=== PATIENT | male | born 1965 | race Two or more races ===

== ENCOUNTER 2020-03-21 10:41 | Inpatient (IN) | payer BC, OTHER ==
[~2020-03-21] VITALS: Ht 165.1 cm; Wt 101.0 kg
[2020-03-21] MEDS ORDERED: AZITHROMYCIN 500MG/ 250ML 250 ML IV ONE (12:00)
[2020-03-21] MEDS ORDERED: DexAMETHasone SOD PHOS 10MG/1ML VIAL INJ IV ONE (12:00)
[2020-03-21 12:09] LABS: Basophils # (auto) 0 10 ^3/uL (0-0.2); Basophils % (auto) 0.1 % (0.0-2.0); Eosinophils # (auto) 0 10 ^3/uL (0-0.8); Hematocrit 41.8 % (41.0-53.0); Hemoglobin 14.5 g/dL (13.5-17.5); Lymphocytes # (auto) 0.4 10 ^3/uL (0.4-5.4); Lymphocytes % (auto) 6.7 % (10.0-50.0); Mean Corpuscular Hemoglobin 31.2 pg (28.0-32.0); Mean Corpuscular Hgb Conc. 34.8 g/dL (32.0-36.0); Mean Corpuscular Volume 89.8 fL (80.0-100.0); Monocytes # (auto) 0.4 10 ^3/uL (0-1.3); Monocytes % (auto) 5.7 % (0.0-12.0); Neutrophils # (auto) 5.5 10 ^3/uL (1.6-8.6); Neutrophils % (auto) 87.5 % (37.0-80.0); Nucleated Red Blood Cells % 0.2 %; Platelet Count (auto) 174 10^3/uL (140-450); Red Blood Cells 4.66 10^6/uL (4.5-5.90); Red Cell Distribution Width 13.3 % (11.8-14.3); White Blood Cell 6.3 10^3/uL (4.4-10.8)
[2020-03-21 12:38] LABS: Albumin 2.8 g/dL (3.4-5.0); Anion Gap 9 (5-15); Blood Urea Nitrogen 11 mg/dL (7-18); Calcium 8.4 mg/dL (8.5-10.1); Carbon Dioxide 26 mmol/L (21-32); Chloride 102 mmol/L (98-107); Glucose 150 mg/dL (74-106); Sodium 137 mmol/L (136-145)
[2020-03-21 12:43] LABS: Alanine Aminotransferase 39 U/L (16-61); Alkaline Phosphatase 96 U/L (45-117); Aspartate Aminotransferase 40 U/L (15-37); BUN/Creatinine Ratio 9.3; Bilirubin, Total 0.5 mg/dL (0.2-1.0); GFR African American 83 mL/min; GFR Non-African American 69 mL/min; Total Protein 7.4 g/dL (6.4-8.2)
[2020-03-21 14:58] LABS: Partial Thromboplastin Time 34.7 sec (23.0-31.2)
[2020-03-21] MEDS ORDERED: MORPHINE SULF INJ 2 MG/ML SYRINGE 1ML IV PRN ×2 (15:30→18:45)
[2020-03-21] MEDS ORDERED: NITROGLYCERIN 0.4 MG SL TAB SL PRN (15:30)
[2020-03-21] MEDS ORDERED: LORazepam 0.5 MG TAB PO ONE (16:00)
[2020-03-21] MEDS ORDERED: traMADol HCL 50 MG TAB PO PRN (18:45)
[2020-03-21] MEDS ORDERED: TEMAZEPAM 15 MG CAP PO PRN (18:45)
[2020-03-21] MEDS ORDERED: diphenhdrAMINE HCL 50 MG/1 ML VL IV PRN (18:45)
[2020-03-21] MEDS ORDERED: DEXTROSE (50%) 50ML SYRG IV PRN (18:45)
[2020-03-21] MEDS ORDERED: ACETAMINOPHEN 500 MG TAB PO PRN (18:45)
[2020-03-21] MEDS ORDERED: chlordiazePOXIDE HCL 25 MG CAP PO PRN (18:45)
[2020-03-21] MEDS ORDERED: PROMETHAZINE HCL 25 MG/ML 1ML IV PRN (18:45)
[2020-03-21] MEDS ORDERED: REMDESIVIR PER PHARMACY 0 ML IV SCH (18:45)
[2020-03-21] MEDS ORDERED: THIAMINE 100mg/ml INJ (200mg/2ml VIAL) IV ONE (18:45)
[2020-03-21] MEDS ORDERED: LORazepam 0.5 MG TAB PO PRN (18:45)
[2020-03-21] MEDS: SODIUM CHLORIDE 0.9% 1,000 ML IV SCH (21:05)
[2020-03-21] MEDS: ENOXAPARIN SOD 40 MG/0.4 ML SYRINGE SC SCH (22:00)
[2020-03-21] MEDS: FAMOTIDINE (10MG/ML) 2ML VL IV SCH (22:00)
[2020-03-21] MEDS: ACCU-CHEK COMFORT CURVE STRIP VI SCH (22:00)
[2020-03-21] MEDS: FAMOTIDINE 20 MG TAB PO SCH (22:00)
[2020-03-21] MEDS: BUDESONIDE (INHALATION) 180 MCG IH IN SCH (22:00)
[2020-03-22] MEDS: chlordiazePOXIDE HCL 5 MG CAP PO SCH ×5 (06:00→23:35)
[2020-03-22] MEDS: ACCU-CHEK COMFORT CURVE STRIP VI SCH (07:00)
[2020-03-22 09:34] LABS: Basophils # (auto) 0 10 ^3/uL (0-0.2); Basophils % (auto) 0.1 % (0.0-2.0); Eosinophils # (auto) 0 10 ^3/uL (0-0.8); Hematocrit 40.9 % (41.0-53.0); Hemoglobin 14.2 g/dL (13.5-17.5); Lymphocytes # (auto) 0.9 10 ^3/uL (0.4-5.4); Lymphocytes % (auto) 12.7 % (10.0-50.0); Mean Corpuscular Hemoglobin 31.3 pg (28.0-32.0); Mean Corpuscular Hgb Conc. 34.8 g/dL (32.0-36.0); Mean Corpuscular Volume 89.9 fL (80.0-100.0); Monocytes # (auto) 0.6 10 ^3/uL (0-1.3); Monocytes % (auto) 8.2 % (0.0-12.0); Neutrophils # (auto) 5.6 10 ^3/uL (1.6-8.6); Nucleated Red Blood Cells % 0.1 %; Platelet Count (auto) 246 10^3/uL (140-450); Red Blood Cells 4.55 10^6/uL (4.5-5.90); Red Cell Distribution Width 13.1 % (11.8-14.3); White Blood Cell 7.1 10^3/uL (4.4-10.8)
[2020-03-22] MEDS: BUDESONIDE (INHALATION) 180 MCG IH IN SCH ×2 (09:39→21:41)
[2020-03-22 09:50] LABS: Albumin 2.8 g/dL (3.4-5.0); Anion Gap 6 (5-15); Blood Urea Nitrogen 18 mg/dL (7-18); Calcium 8.7 mg/dL (8.5-10.1); Carbon Dioxide 27 mmol/L (21-32); Chloride 104 mmol/L (98-107); Glucose 114 mg/dL (74-106); Potassium 4.6 mmol/L (3.5-5.1); Sodium 137 mmol/L (136-145)
[2020-03-22 09:52] LABS: Alanine Aminotransferase 39 U/L (16-61); Aspartate Aminotransferase 37 U/L (15-37); BUN/Creatinine Ratio 15.4; GFR African American 84 mL/min; GFR Non-African American 70 mL/min
[2020-03-22 09:54] LABS: Alkaline Phosphatase 94 U/L (45-117); Bilirubin, Total 0.5 mg/dL (0.2-1.0); Total Protein 7.8 g/dL (6.4-8.2)
[2020-03-22] MEDS: FAMOTIDINE (10MG/ML) 2ML VL IV SCH ×2 (10:41→22:00)
[2020-03-22] MEDS: FAMOTIDINE 20 MG TAB PO SCH ×2 (10:41→22:46)
[2020-03-22] MEDS: ZINC SULFATE 220mg CAP or TAB PO SCH (10:41)
[2020-03-22] MEDS: THIAMINE 100mg/ml INJ (200mg/2ml VIAL) IV SCH (10:42)
[2020-03-22] MEDS: CHOLECALCIFEROL (VITD3) 2,000 UNIT CAP PO SCH (10:42)
[2020-03-22] MEDS: ASCORBIC ACID 1,000 MG TAB PO SCH (10:42)
[2020-03-22] MEDS: SODIUM CHLORIDE 0.9% 1,000 ML IV SCH (10:42)
[2020-03-22] MEDS: levoFLOXacin 500MG 100 ML IV SCH (10:42)
[2020-03-22] MEDS: ENOXAPARIN SOD 40 MG/0.4 ML SYRINGE SC SCH ×2 (10:42→22:45)
[2020-03-22] MEDS: DexAMETHasone SOD PHOS 10MG/1ML VIAL INJ IV SCH (10:47)
[2020-03-22] MEDS ORDERED: REMDESIVIR 200 MG in NS 210ml LOADING DOSE ADULT IV ONE (15:00)
[2020-03-22 23:39] VITALS: BP 132/77
[2020-03-23] VITALS: BP 132/77
[2020-03-23] MEDS ORDERED: LOSA-39 PO (01:04)
[2020-03-23] MEDS ORDERED: ATOR20TA50 PO (01:04)
[2020-03-23] MEDS ORDERED: ASPI-543 PO (01:04)
[2020-03-23] MEDS ORDERED: AMLO5TAB15 PO (01:04)
[2020-03-23] MEDS: chlordiazePOXIDE HCL 5 MG CAP PO SCH ×3 (06:22→18:00)
[2020-03-23] MEDS: BUDESONIDE (INHALATION) 180 MCG IH IN SCH ×2 (06:34→18:36)
[2020-03-23 07:51] LABS: Chloride 106 mmol/L (98-107); Potassium 4.5 mmol/L (3.5-5.1); Sodium 137 mmol/L (136-145)
[2020-03-23 08:00] VITALS: BP 165/88
[2020-03-23 08:39] LABS: Alanine Aminotransferase 36 U/L (16-61); Albumin 2.5 g/dL (3.4-5.0); Alkaline Phosphatase 85 U/L (45-117); Anion Gap 8 (5-15); Aspartate Aminotransferase 37 U/L (15-37); Bilirubin, Total 0.4 mg/dL (0.2-1.0); Blood Urea Nitrogen 21 mg/dL (7-18); Carbon Dioxide 23 mmol/L (21-32); GFR African American 101 mL/min; GFR Non-African American 83 mL/min; Glucose 114 mg/dL (74-106); Total Protein 6.9 g/dL (6.4-8.2)
[2020-03-23] MEDS: CHOLECALCIFEROL (VITD3) 2,000 UNIT CAP PO SCH (10:00)
[2020-03-23] MEDS: FAMOTIDINE 20 MG TAB PO SCH ×2 (10:00→22:53)
[2020-03-23] MEDS: FAMOTIDINE (10MG/ML) 2ML VL IV SCH ×2 (10:05→22:00)
[2020-03-23] MEDS: DexAMETHasone SOD PHOS 10MG/1ML VIAL INJ IV SCH (10:06)
[2020-03-23] MEDS: ZINC SULFATE 220mg CAP or TAB PO SCH (10:06)
[2020-03-23] MEDS: ASCORBIC ACID 1,000 MG TAB PO SCH (10:06)
[2020-03-23] MEDS: levoFLOXacin 500MG 100 ML IV SCH (10:06)
[2020-03-23] MEDS: SODIUM CHLORIDE 0.9% 1,000 ML IV SCH ×2 (10:45)
[2020-03-23] MEDS ORDERED: FUROSEMIDE 20 MG/2 ML VIAL IV ONE (12:30)
[2020-03-23] MEDS: THIAMINE 100mg/ml INJ (200mg/2ml VIAL) IV SCH (13:00)
[2020-03-23] MEDS ORDERED: PROMETHAZINE W/CODEINE 5 ML ORAL SYRUP PO PRN (14:00)
[2020-03-23] MEDS: REMDESIVIR 100 MG in SODIUM CHL 0.9% 250 ML IV SCH ×2 (15:00→17:00)
[2020-03-23 16:00] VITALS: BP 161/93
[2020-03-23 16:26] VITALS: BP 175/95
[2020-03-23] MEDS ORDERED: ACETAMINOPHEN 650 mg PER 20.3 mL UD PO ONE (20:00)
[2020-03-23] MEDS ORDERED: methylPREDNISolone SOD SUCC 40 MG/ML VL IV ONE (20:00)
[2020-03-23] MEDS ORDERED: diphenhdrAMINE HCL 50 MG/1 ML VL IV ONE (20:00)
[2020-03-23] MEDS: ALBUTEROL SULF HFA 90MCG INH 200DOSE IN PRN (20:13)
[2020-03-23] MEDS ORDERED: TOCILIZUMAB 400 MG in SODIUM CHL 0.9% 80 ML IV ONE (20:30)
[2020-03-23] MEDS: ENOXAPARIN SOD 80 MG/0.8ML SYRINGE SC SCH (22:53)
[2020-03-24] VITALS: BP 158/89
[2020-03-24] MEDS: cloNIDine HCL 0.1 MG TAB PO PRN (00:01)
[2020-03-24] MEDS: chlordiazePOXIDE HCL 5 MG CAP PO SCH ×4 (05:43→20:05)
[2020-03-24] MEDS: BUDESONIDE (INHALATION) 180 MCG IH IN SCH ×2 (06:18→19:37)
[2020-03-24 07:59] LABS: Albumin 2.3 g/dL (3.4-5.0); Calcium 8.7 mg/dL (8.5-10.1); Potassium 4.1 mmol/L (3.5-5.1)
[2020-03-24 08:00] VITALS: BP 154/87
[2020-03-24 08:02] LABS: BUN/Creatinine Ratio 23.3; Bilirubin, Total 0.4 mg/dL (0.2-1.0); Total Protein 6.6 g/dL (6.4-8.2)
[2020-03-24] MEDS ORDERED: methylPREDNISolone SOD SUCC 40 MG/ML VL IV ONE (09:30)
[2020-03-24] MEDS ORDERED: diphenhdrAMINE HCL 50 MG/1 ML VL IV ONE (09:30)
[2020-03-24] MEDS ORDERED: ACETAMINOPHEN 650 mg PER 20.3 mL UD PO ONE (09:30)
[2020-03-24] MEDS: THIAMINE 100mg/ml INJ (200mg/2ml VIAL) IV SCH (09:51)
[2020-03-24] MEDS: levoFLOXacin 500MG 100 ML IV SCH (09:52)
[2020-03-24] MEDS: FUROSEMIDE 20 MG/2 ML VIAL IV SCH (09:53)
[2020-03-24] MEDS: FAMOTIDINE (10MG/ML) 2ML VL IV SCH ×2 (09:53→21:18)
[2020-03-24] MEDS: ZINC SULFATE 220mg CAP or TAB PO SCH (09:53)
[2020-03-24] MEDS: FAMOTIDINE 20 MG TAB PO SCH ×2 (09:53→10:00)
[2020-03-24] MEDS: CHOLECALCIFEROL (VITD3) 2,000 UNIT CAP PO SCH (09:54)
[2020-03-24] MEDS: ASCORBIC ACID 1,000 MG TAB PO SCH (09:54)
[2020-03-24] MEDS: ENOXAPARIN SOD 80 MG/0.8ML SYRINGE SC SCH ×2 (09:54→21:18)
[2020-03-24] MEDS ORDERED: TOCILIZUMAB 400 MG in SODIUM CHL 0.9% 80 ML IV ONE (10:00)
[2020-03-24] MEDS ORDERED: amLODIPine BESYLATE 5 MG TAB PO SCH (10:00)
[2020-03-24] MEDS: DexAMETHasone SOD PHOS 10MG/1ML VIAL INJ IV SCH (11:30)
[2020-03-24] MEDS: Ensure HIGH Protein Chocolate 8oz Bottle PO SCH ×2 (12:00→18:00)
[2020-03-24] MEDS: REMDESIVIR 100 MG in SODIUM CHL 0.9% 250 ML IV SCH (15:06)
[2020-03-24 16:00] VITALS: BP 137/67
[2020-03-24] MEDS: ALBUTEROL SULF HFA 90MCG INH 200DOSE IN PRN (19:37)
[2020-03-25] VITALS: BP 158/82
[2020-03-25] MEDS: chlordiazePOXIDE HCL 5 MG CAP PO SCH ×5 (00:29→23:36)
[2020-03-25 07:22] LABS: Albumin 2.4 g/dL (3.4-5.0); Calcium 8.8 mg/dL (8.5-10.1); Potassium 3.7 mmol/L (3.5-5.1)
[2020-03-25 07:27] LABS: BUN/Creatinine Ratio 20.8; Bilirubin, Total 0.4 mg/dL (0.2-1.0); Total Protein 6.8 g/dL (6.4-8.2)
[2020-03-25] MEDS: ALBUTEROL SULF HFA 90MCG INH 200DOSE IN PRN ×2 (07:47→19:28)
[2020-03-25] MEDS: BUDESONIDE (INHALATION) 180 MCG IH IN SCH ×2 (07:47→19:28)
[2020-03-25] MEDS: Ensure HIGH Protein Chocolate 8oz Bottle PO SCH ×3 (08:00→17:42)
[2020-03-25 08:30] VITALS: BP 156/78
[2020-03-25] MEDS: DexAMETHasone SOD PHOS 10MG/1ML VIAL INJ IV SCH (09:27)
[2020-03-25] MEDS: ZINC SULFATE 220mg CAP or TAB PO SCH (09:27)
[2020-03-25] MEDS: FAMOTIDINE (10MG/ML) 2ML VL IV SCH ×2 (09:27→21:53)
[2020-03-25] MEDS: THIAMINE 100mg/ml INJ (200mg/2ml VIAL) IV SCH (09:27)
[2020-03-25] MEDS: levoFLOXacin 500MG 100 ML IV SCH (09:27)
[2020-03-25] MEDS: FUROSEMIDE 20 MG/2 ML VIAL IV SCH ×2 (09:27→21:53)
[2020-03-25] MEDS: CHOLECALCIFEROL (VITD3) 2,000 UNIT CAP PO SCH (09:28)
[2020-03-25] MEDS: ASCORBIC ACID 1,000 MG TAB PO SCH (09:28)
[2020-03-25] MEDS: ENOXAPARIN SOD 80 MG/0.8ML SYRINGE SC SCH ×2 (09:28→21:54)
[2020-03-25] MEDS: amLODIPine BESYLATE 5 MG TAB PO SCH (09:28)
[2020-03-25] MEDS ORDERED: POTASSIUM CHL 20 Meq TABLET PO ONE (11:30)
[2020-03-25 12:45] VITALS: BP 159/90
[2020-03-25 13:00] VITALS: BP 155/95
[2020-03-25 14:34] VITALS: BP 147/98
[2020-03-25] MEDS: REMDESIVIR 100 MG in SODIUM CHL 0.9% 250 ML IV SCH (15:19)
[2020-03-25 16:05] VITALS: BP 147/98
[2020-03-25] MEDS: cloNIDine HCL 0.1 MG TAB PO PRN (23:36)
[2020-03-26] VITALS: BP 158/89
[2020-03-26] MEDS: chlordiazePOXIDE HCL 5 MG CAP PO SCH ×3 (06:12→17:56)
[2020-03-26 07:05] LABS: Potassium 3.9 mmol/L (3.5-5.1)
[2020-03-26 07:13] LABS: Albumin 2.4 g/dL (3.4-5.0); BUN/Creatinine Ratio 19.5; Bilirubin, Total 0.4 mg/dL (0.2-1.0); Calcium 8.9 mg/dL (8.5-10.1); Total Protein 6.4 g/dL (6.4-8.2)
[2020-03-26] MEDS: BUDESONIDE (INHALATION) 180 MCG IH IN SCH ×2 (07:43→20:52)
[2020-03-26] MEDS: ALBUTEROL SULF HFA 90MCG INH 200DOSE IN PRN ×2 (07:43→20:52)
[2020-03-26 08:00] VITALS: BP 137/78
[2020-03-26] MEDS: Ensure HIGH Protein Chocolate 8oz Bottle PO SCH ×3 (08:00→17:56)
[2020-03-26] MEDS: THIAMINE 100mg/ml INJ (200mg/2ml VIAL) IV SCH (10:10)
[2020-03-26] MEDS: DexAMETHasone SOD PHOS 10MG/1ML VIAL INJ IV SCH (10:11)
[2020-03-26] MEDS: ZINC SULFATE 220mg CAP or TAB PO SCH (10:11)
[2020-03-26] MEDS: ASCORBIC ACID 1,000 MG TAB PO SCH (10:11)
[2020-03-26] MEDS: POTASSIUM CHL 20 Meq TABLET PO SCH (10:11)
[2020-03-26] MEDS: FAMOTIDINE (10MG/ML) 2ML VL IV SCH ×2 (10:11→22:05)
[2020-03-26] MEDS: levoFLOXacin 500MG 100 ML IV SCH (10:11)
[2020-03-26] MEDS: ENOXAPARIN SOD 80 MG/0.8ML SYRINGE SC SCH ×2 (10:12→22:05)
[2020-03-26] MEDS: CHOLECALCIFEROL (VITD3) 2,000 UNIT CAP PO SCH (10:12)
[2020-03-26] MEDS: FUROSEMIDE 20 MG/2 ML VIAL IV SCH (10:12)
[2020-03-26] MEDS: amLODIPine BESYLATE 5 MG TAB PO SCH (10:13)
[2020-03-26] MEDS: REMDESIVIR 100 MG in SODIUM CHL 0.9% 250 ML IV SCH (15:42)
[2020-03-26 15:55] VITALS: BP 134/85
[2020-03-27] VITALS: BP 163/79
[2020-03-27] MEDS: chlordiazePOXIDE HCL 5 MG CAP PO SCH ×5 (00:17→23:08)
[2020-03-27] MEDS: ALBUTEROL SULF HFA 90MCG INH 200DOSE IN PRN ×2 (05:54→19:46)
[2020-03-27] MEDS: BUDESONIDE (INHALATION) 180 MCG IH IN SCH ×2 (05:54→19:46)
[2020-03-27 06:33] LABS: Basophils # (auto) 0 10 ^3/uL (0-0.2); Basophils % (auto) 0.1 % (0.0-2.0); Eosinophils # (auto) 0.1 10 ^3/uL (0-0.8); Eosinophils % (auto) 0.6 % (0.0-7.0); Hematocrit 43.8 % (41.0-53.0); Hemoglobin 15.4 g/dL (13.5-17.5); Lymphocytes # (auto) 1.6 10 ^3/uL (0.4-5.4); Lymphocytes % (auto) 13.9 % (10.0-50.0); Mean Corpuscular Hemoglobin 31.1 pg (28.0-32.0); Mean Corpuscular Hgb Conc. 35.3 g/dL (32.0-36.0); Mean Corpuscular Volume 88.3 fL (80.0-100.0); Monocytes # (auto) 0.7 10 ^3/uL (0-1.3); Monocytes % (auto) 6.3 % (0.0-12.0); Neutrophils # (auto) 9.1 10 ^3/uL (1.6-8.6); Neutrophils % (auto) 79.1 % (37.0-80.0); Nucleated Red Blood Cells % 0.1 %; Platelet Count (auto) 309 10^3/uL (140-450); Red Blood Cells 4.96 10^6/uL (4.5-5.90); White Blood Cell 11.5 10^3/uL (4.4-10.8)
[2020-03-27 06:51] LABS: Potassium 4.3 mmol/L (3.5-5.1)
[2020-03-27 06:55] LABS: Calcium 9.2 mg/dL (8.5-10.1)
[2020-03-27] MEDS ORDERED: FUROSEMIDE 20 MG/2 ML VIAL IV SCH (07:00)
[2020-03-27 08:00] VITALS: BP 116/77
[2020-03-27] MEDS: Ensure HIGH Protein Chocolate 8oz Bottle PO SCH ×3 (08:00→18:00)
[2020-03-27] MEDS: POTASSIUM CHL 20 Meq TABLET PO SCH ×2 (10:30→23:08)
[2020-03-27] MEDS: ASCORBIC ACID 1,000 MG TAB PO SCH (10:30)
[2020-03-27] MEDS: FAMOTIDINE (10MG/ML) 2ML VL IV SCH ×2 (10:30→23:08)
[2020-03-27] MEDS: DexAMETHasone SOD PHOS 10MG/1ML VIAL INJ IV SCH (10:30)
[2020-03-27] MEDS: ZINC SULFATE 220mg CAP or TAB PO SCH (10:30)
[2020-03-27] MEDS: THIAMINE 100mg/ml INJ (200mg/2ml VIAL) IV SCH (10:30)
[2020-03-27] MEDS: amLODIPine BESYLATE 5 MG TAB PO SCH (10:30)
[2020-03-27] MEDS: ENOXAPARIN SOD 80 MG/0.8ML SYRINGE SC SCH ×2 (10:30→23:08)
[2020-03-27] MEDS: levoFLOXacin 500MG 100 ML IV SCH (10:30)
[2020-03-27] MEDS: CHOLECALCIFEROL (VITD3) 2,000 UNIT CAP PO SCH (10:30)
[2020-03-27 16:00] VITALS: BP_SYST 123; BP_SYST 141; BP_DIAS 70; BP_DIAS 76
[2020-03-27] MEDS: FUROSEMIDE 20 MG/2 ML VIAL IV SCH (23:07)
[2020-03-28] VITALS: BP 152/86
[2020-03-28] MEDS: chlordiazePOXIDE HCL 5 MG CAP PO SCH ×3 (06:38→18:00)
[2020-03-28 08:00] VITALS: BP_SYST 103; BP_SYST 123; BP_DIAS 67; BP_DIAS 73
[2020-03-28] MEDS: Ensure HIGH Protein Chocolate 8oz Bottle PO SCH ×3 (08:00→17:59)
[2020-03-28] MEDS: ZINC SULFATE 220mg CAP or TAB PO SCH (09:51)
[2020-03-28] MEDS: FAMOTIDINE (10MG/ML) 2ML VL IV SCH ×2 (09:52→22:21)
[2020-03-28] MEDS: ASCORBIC ACID 1,000 MG TAB PO SCH (09:52)
[2020-03-28] MEDS: DexAMETHasone SOD PHOS 10MG/1ML VIAL INJ IV SCH (09:52)
[2020-03-28] MEDS: THIAMINE 100mg/ml INJ (200mg/2ml VIAL) IV SCH (09:52)
[2020-03-28] MEDS: ENOXAPARIN SOD 80 MG/0.8ML SYRINGE SC SCH ×2 (09:52→22:22)
[2020-03-28] MEDS: POTASSIUM CHL 20 Meq TABLET PO SCH ×2 (09:53→22:21)
[2020-03-28] MEDS: CHOLECALCIFEROL (VITD3) 2,000 UNIT CAP PO SCH (09:53)
[2020-03-28] MEDS: amLODIPine BESYLATE 5 MG TAB PO SCH (09:55)
[2020-03-28] MEDS: levoFLOXacin 500MG 100 ML IV SCH (09:55)
[2020-03-28] MEDS: FUROSEMIDE 20 MG/2 ML VIAL IV SCH ×2 (10:00→23:00)
[2020-03-28] MEDS: BUDESONIDE (INHALATION) 180 MCG IH IN SCH ×2 (10:23→19:02)
[2020-03-28] MEDS: ALBUTEROL SULF HFA 90MCG INH 200DOSE IN PRN ×2 (10:23→20:48)
[2020-03-28 16:00] VITALS: BP 141/94
[2020-03-28 16:10] LABS: BUN/Creatinine Ratio 22.5; Calcium 9.5 mg/dL (8.5-10.1)
[2020-03-29] VITALS: BP 130/47
[2020-03-29] MEDS: chlordiazePOXIDE HCL 5 MG CAP PO SCH ×4 (00:26→17:37)
[2020-03-29] MEDS: BUDESONIDE (INHALATION) 180 MCG IH IN SCH ×2 (07:00→18:40)
[2020-03-29] MEDS: ALBUTEROL SULF HFA 90MCG INH 200DOSE IN PRN ×2 (07:00→18:40)
[2020-03-29 08:00] VITALS: BP 117/72
[2020-03-29] MEDS: Ensure HIGH Protein Chocolate 8oz Bottle PO SCH ×3 (08:00→17:37)
[2020-03-29] MEDS: FUROSEMIDE 20 MG/2 ML VIAL IV SCH ×2 (10:00→22:35)
[2020-03-29] MEDS: FAMOTIDINE (10MG/ML) 2ML VL IV SCH ×2 (10:15→22:35)
[2020-03-29] MEDS: THIAMINE 100mg/ml INJ (200mg/2ml VIAL) IV SCH (10:15)
[2020-03-29] MEDS: POTASSIUM CHL 20 Meq TABLET PO SCH ×2 (10:15→22:36)
[2020-03-29] MEDS: levoFLOXacin 500MG 100 ML IV SCH (10:15)
[2020-03-29] MEDS: amLODIPine BESYLATE 5 MG TAB PO SCH (10:15)
[2020-03-29] MEDS: ASCORBIC ACID 1,000 MG TAB PO SCH (10:15)
[2020-03-29] MEDS: ZINC SULFATE 220mg CAP or TAB PO SCH (10:15)
[2020-03-29] MEDS: DexAMETHasone SOD PHOS 10MG/1ML VIAL INJ IV SCH (10:15)
[2020-03-29] MEDS: CHOLECALCIFEROL (VITD3) 2,000 UNIT CAP PO SCH (10:15)
[2020-03-29] MEDS: ENOXAPARIN SOD 80 MG/0.8ML SYRINGE SC SCH ×2 (10:15→22:36)
[2020-03-29 16:00] VITALS: BP 124/77
[2020-03-30] VITALS: BP 148/83
[2020-03-30] MEDS: chlordiazePOXIDE HCL 5 MG CAP PO SCH ×2 (00:20→06:10)
[2020-03-30 05:52] LABS: Hematocrit 44.8 % (41.0-53.0); Hemoglobin 15.6 g/dL (13.5-17.5); Mean Corpuscular Hemoglobin 30.9 pg (28.0-32.0); Mean Corpuscular Hgb Conc. 34.8 g/dL (32.0-36.0); Mean Corpuscular Volume 88.9 fL (80.0-100.0); Platelet Count (auto) 327 10^3/uL (140-450); Red Blood Cells 5.04 10^6/uL (4.5-5.90); Red Cell Distribution Width 13.4 % (11.8-14.3); White Blood Cell 15.4 10^3/uL (4.4-10.8)
[2020-03-30 06:02] LABS: Basophils % (manual) 0 (0.0-2.0); Blast Cells 0; Metamyelocytes % 0; Promyelocytes % 0; Reactive Lymphocytes 0
[2020-03-30 06:13] LABS: Partial Thromboplastin Time 31.9 sec (23.0-31.2)
[2020-03-30 06:15] LABS: Albumin 2.8 g/dL (3.4-5.0); Calcium 8.9 mg/dL (8.5-10.1); Magnesium 2.2 mg/dL (1.6-2.6); Potassium 4.7 mmol/L (3.5-5.1)
[2020-03-30 06:20] LABS: BUN/Creatinine Ratio 23.6; Bilirubin, Total 0.5 mg/dL (0.2-1.0); Phosphorus 3.6 mg/dL (2.5-4.90); Total Protein 6.2 g/dL (6.4-8.2)
[2020-03-30] MEDS: BUDESONIDE (INHALATION) 180 MCG IH IN SCH ×2 (06:48→18:46)
[2020-03-30 06:53] LABS: Band Neutrophils % (manual) 8; Eosinophils % (manual) 1 (0-7); Lymphocytes % (manual) 14 (10.0-50.0); Monocytes % (manual) 4 (0-12); Myelocytes % 2
[2020-03-30 08:00] VITALS: BP 121/68
[2020-03-30] MEDS: Ensure HIGH Protein Chocolate 8oz Bottle PO SCH ×3 (08:00→18:02)
[2020-03-30] MEDS: levoFLOXacin 500MG 100 ML IV SCH (09:53)
[2020-03-30] MEDS: DexAMETHasone SOD PHOS 10MG/1ML VIAL INJ IV SCH (09:53)
[2020-03-30] MEDS: THIAMINE 100mg/ml INJ (200mg/2ml VIAL) IV SCH (09:53)
[2020-03-30] MEDS: FAMOTIDINE (10MG/ML) 2ML VL IV SCH ×2 (09:53→22:02)
[2020-03-30] MEDS: ENOXAPARIN SOD 80 MG/0.8ML SYRINGE SC SCH ×2 (09:54→22:02)
[2020-03-30] MEDS: ASCORBIC ACID 1,000 MG TAB PO SCH (09:55)
[2020-03-30] MEDS: POTASSIUM CHL 20 Meq TABLET PO SCH (09:55)
[2020-03-30] MEDS: CHOLECALCIFEROL (VITD3) 2,000 UNIT CAP PO SCH (09:56)
[2020-03-30] MEDS: ZINC SULFATE 220mg CAP or TAB PO SCH (09:56)
[2020-03-30] MEDS: amLODIPine BESYLATE 5 MG TAB PO SCH (09:57)
[2020-03-30 16:00] VITALS: BP 137/67
[2020-03-30] MEDS: ALBUTEROL SULF HFA 90MCG INH 200DOSE IN PRN (18:46)
[2020-03-31] VITALS: BP 141/80
[2020-03-31] MEDS ORDERED: FUROSEMIDE 40 MG/4 ML VIAL ONE (06:14)
[2020-03-31 06:18] LABS: Hematocrit 45.6 % (41.0-53.0); Hemoglobin 16.2 g/dL (13.5-17.5); Mean Corpuscular Hemoglobin 31.9 pg (28.0-32.0); Mean Corpuscular Hgb Conc. 35.5 g/dL (32.0-36.0); Mean Corpuscular Volume 89.6 fL (80.0-100.0); Platelet Count (auto) 311 10^3/uL (140-450); Red Blood Cells 5.09 10^6/uL (4.5-5.90); Red Cell Distribution Width 13.2 % (11.8-14.3); White Blood Cell 15.3 10^3/uL (4.4-10.8)
[2020-03-31 06:40] LABS: Basophils % (manual) 0 (0.0-2.0); Blast Cells 0; Eosinophils % (manual) 0 (0-7); Promyelocytes % 0; Reactive Lymphocytes 0
[2020-03-31 06:44] LABS: Potassium 4.6 mmol/L (3.5-5.1)
[2020-03-31 06:53] LABS: BUN/Creatinine Ratio 22.4; Calcium 8.6 mg/dL (8.5-10.1); Magnesium 2.6 mg/dL (1.6-2.6)
[2020-03-31] MEDS: FUROSEMIDE 20 MG/2 ML VIAL IV SCH (06:55)
[2020-03-31 08:00] VITALS: BP 130/76
[2020-03-31 08:02] LABS: Band Neutrophils % (manual) 4; Lymphocytes % (manual) 11 (10.0-50.0); Metamyelocytes % 2; Monocytes % (manual) 2 (0-12); Myelocytes % 1
[2020-03-31] MEDS: Ensure HIGH Protein Chocolate 8oz Bottle PO SCH ×3 (08:29→18:05)
[2020-03-31] MEDS: BUDESONIDE (INHALATION) 180 MCG IH IN SCH (10:15)
[2020-03-31] MEDS: FAMOTIDINE (10MG/ML) 2ML VL IV SCH ×2 (10:22→20:17)
[2020-03-31] MEDS: ENOXAPARIN SOD 80 MG/0.8ML SYRINGE SC SCH ×2 (10:23→20:17)
[2020-03-31] MEDS: THIAMINE 100mg/ml INJ (200mg/2ml VIAL) IV SCH (10:24)
[2020-03-31] MEDS: DexAMETHasone SOD PHOS 10MG/1ML VIAL INJ IV SCH (10:24)
[2020-03-31] MEDS: levoFLOXacin 500MG 100 ML IV SCH (10:24)
[2020-03-31] MEDS: ZINC SULFATE 220mg CAP or TAB PO SCH (10:26)
[2020-03-31] MEDS: CHOLECALCIFEROL (VITD3) 2,000 UNIT CAP PO SCH (10:26)
[2020-03-31] MEDS: amLODIPine BESYLATE 5 MG TAB PO SCH (10:27)
[2020-03-31] MEDS: POTASSIUM CHL 20 Meq TABLET PO SCH (10:28)
[2020-03-31] MEDS: ASCORBIC ACID 1,000 MG TAB PO SCH (10:29)
[2020-03-31] MEDS ORDERED: DEXTROSE (50%) 50ML SYRG IV PRN ×3 (14:00→21:00)
[2020-03-31 16:00] VITALS: BP 133/78
[2020-03-31] MEDS ORDERED: InsuLIN REG 1unit/0.01ml Soln (100units/ml) SC SCH ×3 (17:00→22:00)
[2020-03-31] MEDS ORDERED: ACCU-CHEK COMFORT CURVE STRIP VI SCH ×2 (17:00→20:00)
[2020-03-31] MEDS ORDERED: INSULIN LANTUS (GLARGINE) 1 /0.01ml (100units/ml) SC ONE (18:00)
[2020-03-31] MEDS: ALBUTEROL SULF HFA 90MCG INH 200DOSE IN PRN (19:12)
[2020-03-31] MEDS: ACCU-CHEK COMFORT CURVE STRIP VI SCH (23:18)
[2020-03-31] MEDS: InsuLIN REG 1unit/0.01ml Soln (100units/ml) SC SCH (23:19)
[2020-04-01] VITALS: BP 141/72
[2020-04-01] MEDS: InsuLIN REG 1unit/0.01ml Soln (100units/ml) SC SCH ×4 (03:21→17:00)
[2020-04-01] MEDS: ACCU-CHEK COMFORT CURVE STRIP VI SCH ×4 (03:21→21:56)
[2020-04-01] MEDS ORDERED: FUROSEMIDE 40 MG/4 ML VIAL ONE (05:21)
[2020-04-01] MEDS: FUROSEMIDE 20 MG/2 ML VIAL IV SCH (07:05)
[2020-04-01] MEDS: ALBUTEROL SULF HFA 90MCG INH 200DOSE IN PRN ×2 (07:12→21:54)
[2020-04-01] MEDS: BUDESONIDE (INHALATION) 180 MCG IH IN SCH ×2 (07:12→21:54)
[2020-04-01 08:00] VITALS: BP 127/72
[2020-04-01] MEDS: Ensure HIGH Protein Chocolate 8oz Bottle PO SCH ×3 (08:23→18:00)
[2020-04-01] MEDS: THIAMINE 100mg/ml INJ (200mg/2ml VIAL) IV SCH (10:00)
[2020-04-01] MEDS: levoFLOXacin 500MG 100 ML IV SCH (10:00)
[2020-04-01] MEDS: DexAMETHasone SOD PHOS 10MG/1ML VIAL INJ IV SCH (10:00)
[2020-04-01] MEDS: FAMOTIDINE (10MG/ML) 2ML VL IV SCH (10:00)
[2020-04-01] MEDS: POTASSIUM CHL 20 Meq TABLET PO SCH (10:01)
[2020-04-01] MEDS: ZINC SULFATE 220mg CAP or TAB PO SCH (10:01)
[2020-04-01] MEDS: ENOXAPARIN SOD 80 MG/0.8ML SYRINGE SC SCH ×2 (10:04→21:56)
[2020-04-01] MEDS: CHOLECALCIFEROL (VITD3) 2,000 UNIT CAP PO SCH (10:04)
[2020-04-01] MEDS: ASCORBIC ACID 1,000 MG TAB PO SCH (10:04)
[2020-04-01] MEDS: amLODIPine BESYLATE 5 MG TAB PO SCH (10:04)
[2020-04-01] MEDS: INSULIN LANTUS (GLARGINE) 1 /0.01ml (100units/ml) SC SCH (10:27)
[2020-04-01] MEDS ORDERED: DEXTROSE (50%) 50ML SYRG IV PRN (12:45)
[2020-04-01] MEDS ORDERED: FAMOTIDINE 20 MG TAB PO ONE (13:00)
[2020-04-01 16:00] VITALS: BP 139/75
[2020-04-01] MEDS ORDERED: InsuLIN REG 1unit/0.01ml Soln (100units/ml) SC SCH ×2 (17:00→22:00)
[2020-04-01] MEDS: metFORMIN HYDROCHLORIDE 500 MG TAB PO SCH (18:00)
[2020-04-02] VITALS: BP 137/86
[2020-04-02] MEDS: ACCU-CHEK COMFORT CURVE STRIP VI SCH ×3 (06:33→17:04)
[2020-04-02] MEDS: InsuLIN REG 1unit/0.01ml Soln (100units/ml) SC SCH ×3 (06:34→16:58)
[2020-04-02] MEDS: BUDESONIDE (INHALATION) 180 MCG IH IN SCH (06:39)
[2020-04-02] MEDS: ALBUTEROL SULF HFA 90MCG INH 200DOSE IN PRN (06:39)
[2020-04-02] MEDS ORDERED: FUROSEMIDE 40 MG/4 ML VIAL ONE (06:39)
[2020-04-02 06:43] LABS: Hematocrit 44.4 % (41.0-53.0); Hemoglobin 15.2 g/dL (13.5-17.5); Mean Corpuscular Hemoglobin 30.5 pg (28.0-32.0); Mean Corpuscular Hgb Conc. 34.2 g/dL (32.0-36.0); Mean Corpuscular Volume 89.3 fL (80.0-100.0); Platelet Count (auto) 239 10^3/uL (140-450); Red Blood Cells 4.97 10^6/uL (4.5-5.90); Red Cell Distribution Width 13.5 % (11.8-14.3); White Blood Cell 15.9 10^3/uL (4.4-10.8)
[2020-04-02] MEDS: FUROSEMIDE 20 MG/2 ML VIAL IV SCH (06:50)
[2020-04-02] MEDS ORDERED: FUROSEMIDE 40 MG/4 ML VIAL IV SCH (07:00)
[2020-04-02 07:06] LABS: Potassium 4.1 mmol/L (3.5-5.1)
[2020-04-02 07:15] LABS: BUN/Creatinine Ratio 27.5
[2020-04-02 07:31] LABS: Basophils % (manual) 0 (0.0-2.0); Blast Cells 0; Eosinophils % (manual) 0 (0-7); Metamyelocytes % 0; Myelocytes % 0; Promyelocytes % 0; Reactive Lymphocytes 0
[2020-04-02 07:53] VITALS: BP 130/87
[2020-04-02] MEDS: Ensure HIGH Protein Chocolate 8oz Bottle PO SCH ×2 (08:05→12:32)
[2020-04-02 09:28] LABS: Band Neutrophils % (manual) 1; Lymphocytes % (manual) 14 (10.0-50.0); Monocytes % (manual) 6 (0-12)
[2020-04-02] MEDS ORDERED: THIAMINE HCL 100 MG TAB PO SCH (10:00)
[2020-04-02] MEDS ORDERED: DexAMETHasone 4 MG TAB PO SCH (10:00)
[2020-04-02] MEDS ORDERED: levoFLOXacin 500 MG TAB PO SCH (10:00)
[2020-04-02] MEDS ORDERED: FAMOTIDINE 20 MG TAB PO SCH (10:00)
[2020-04-02] MEDS: ZINC SULFATE 220mg CAP or TAB PO SCH (10:16)
[2020-04-02] MEDS: metFORMIN HYDROCHLORIDE 500 MG TAB PO SCH (10:17)
[2020-04-02] MEDS: CHOLECALCIFEROL (VITD3) 2,000 UNIT CAP PO SCH (10:17)
[2020-04-02] MEDS: ASCORBIC ACID 1,000 MG TAB PO SCH (10:19)
[2020-04-02] MEDS: INSULIN LANTUS (GLARGINE) 1 /0.01ml (100units/ml) SC SCH (10:23)
[2020-04-02] MEDS: ENOXAPARIN SOD 80 MG/0.8ML SYRINGE SC SCH (10:32)
[2020-04-02] MEDS: POTASSIUM CHL 20 Meq TABLET PO SCH (12:30)
[2020-04-02] MEDS: amLODIPine BESYLATE 5 MG TAB PO SCH (12:31)
[2020-04-02 15:02] VITALS: BP 130/71
[2020-04-02 15:49] VITALS: BP 131/73
== END 2020-04-02 17:30 | disposition home or self-care (01) | DRG 177 ==
LOC: ER 10:41 → TELE 15:23 → TELE-E-ADS 03-22 20:43
PROVIDERS: ADMIT Internal Medicine; ATTEND Internal Medicine
PROC: XW033H5 Introduction of Tocilizumab into Peripheral Vein, Percutaneous Approach, New Technology Group 5 (ICD-10-PCS; 2020-03-21)
PROC: XW033E5 Introduction of Remdesivir Anti-infective into Peripheral Vein, Percutaneous Approach, New Technology Group 5 (ICD-10-PCS; 2020-03-23)
PROC: XW13325 Transfusion of Convalescent Plasma (Nonautologous) into Peripheral Vein, Percutaneous Approach, New Technology Group 5 (ICD-10-PCS; principal; 2020-03-25)
DX: U07.1 COVID-19 (principal); J12.82 Pneumonia due to coronavirus disease 2019; J96.01 Acute respiratory failure with hypoxia; I47.2 Ventricular tachycardia; F10.139 Alcohol abuse with withdrawal, unspecified; E66.9 Obesity, unspecified; D89.839 Cytokine release syndrome, grade unspecified; E78.5 Hyperlipidemia, unspecified; I10 Essential (primary) hypertension; Y90.9 Presence of alcohol in blood, level not specified; E11.65 Type 2 diabetes mellitus with hyperglycemia; F41.9 Anxiety disorder, unspecified; I16.0 Hypertensive urgency; Z79.82 Long term (current) use of aspirin; Z79.84 Long term (current) use of oral hypoglycemic drugs; Z82.49 Family history of ischemic heart disease and other diseases of the circulatory system; Z68.37 Body mass index [BMI] 37.0-37.9, adult
CPT/HCPCS: 36415; 71045; 80048; 80053; 82962; 83036; 83605; 83735; 84100; 84484; 85007; 85025; 85027; 85610; 85730; 86850; 86900; 86901; 87040; 87426; 93005; 93306; 94640; 96365; 96366; 96375; G0378; J1100; J1815; J1956; J3490